=== PATIENT | female | born 1985 | race Caucasian/White ===

== ENCOUNTER 2025-07-15 12:41 | Emergency (ER) | payer SELFPAY ==
[~2025-07-15] VITALS: Ht 170.2 cm; Wt 65.0 kg
[2025-07-15 12:43] VITALS: BP 133/78; PULSE 89; RESP 18; TEMP 97.9; O2SAT 98
--- NOTE | 2025-07-15 12:51 | Physician Documentation ---
History of Present Illness ~ General Stated Complaint: COLD Time Seen by MD: 12:47 History of Present Illness Initial Comments 43-year-old female presents stating she has cold from being outside. sHe is asking to hang out in the ER for a while. Temp is 97.4f orally Medication Reconciliation Allergies: Coded Allergies: No Known Allergies (Unverified , 07/15/25) Review of Systems All Other Systems at this time: Reviewed and Negative ROS As stated above in the HPI, otherwise all systems are reviewed and negative. Physical Exam Physical Exam Physical Exam General: Alert, no apparent distress. Respiratory: Lungs clear, no respiratory distress. Cardiovascular: Regular rate and rhythm, no murmurs. Gastrointestinal: Soft, nontender, nondistended. Bowels sounds present. Extremities: Normal range of motion, no deformity. Neurologic: Oriented x4. Psychiatric: Normal mood and affect. Skin: Normal color, warm and dry. No edema, no ecchymosis. Progress Results/Orders Results/Orders Vital Signs 07/15/25 12:43 Temp 97.9 Pulse 89 Resp 18 B/P (MAP) 133/78 Pulse Ox 98 O2 Flow Rate 0 Medical Decision Making Additional information obtaine: old records Findings The patient a blanket offered socks and a male she declined the socks in the meal. She is not present acutely ill or hypothermia, I am going to discharge her Differential Diagnosis r Departure Disposition: 01 HOME / SELF CARE / HOMELESS Impression: Primary Impression: General medical exam Condition: Improved Discharge Instructions: Hypothermia Referrals: NO PRIMARY CARE PROVIDER (PCP) Signature Scribe Signature: g Attestation: Scribed for Emergency,Department by Liam Ingram NP . 07/15/25 12:49 LIAM DONATO NP Jul 15, 2025 12:51
== END 2025-07-15 13:03 | disposition home or self-care (01) ==
LOC: EDBD 12:42 → ER 12:42
DX: J00 Acute nasopharyngitis [common cold] (principal); Z00.00 Encounter for general adult medical examination without abnormal findings
CPT/HCPCS: 99283

== ENCOUNTER 2025-07-17 00:20 | Emergency (ER) | payer SELFPAY ==
[~2025-07-17] VITALS: Ht 165.1 cm; Wt 65.0 kg
[2025-07-17 00:30] VITALS: BP 134/98; PULSE 93; RESP 15; TEMP 95.4; O2SAT 100
== END 2025-07-17 02:08 | disposition left against medical advice (07) ==
LOC: ER 00:21
DX: R42 Dizziness and giddiness (principal)
CPT/HCPCS: 99281